=== PATIENT | male | born 1980 | race Caucasian/White ===

== ENCOUNTER → 2019-08-16 | Outpatient (CLI) | payer BC ==
--- NOTE | 2019-08-17 15:25 | KCIC ---
CHEST PA LATERAL History: Paratracheal mass. Comparison: 02/15/2019 AP view of the chest. Findings: Frontal and lateral views of the chest were obtained. The cardiomediastinal silhouette is normal. Pulmonary vasculature is normal. There is a right lower paratracheal mass which extends to the azygos level and right proximal main bronchus level. It measures 6.9 cm longitudinal by 4.2 cm transverse on the frontal view. The lungs are clear. No pleural effusion or pneumothorax is seen. There is no acute bone abnormality. IMPRESSION: Right lower paratracheal mass is new since the prior exam. Neoplastic etiology is of concern including lymphoma or lung carcinoma. This may represent representing lymphadenopathy related to underlying infectious etiology or other process. Further evaluation with CT of the chest with contrast is recommended. Discussed with the patient on 08/17/2019 at 3:18 PM. Discussed with the referring Dr. Joaquin Rodriguez on 08/17/2019 at 3:20 PM. Electronically signed by: Parish Robertson MD (08/17/2019 3:22 PM) [id number]
== END ==
LOC: KCIC 16:51
PROVIDERS: ATTEND Chiropractor
DX: R22.2 Localized swelling, mass and lump, trunk (principal)
CPT/HCPCS: 71046

== ENCOUNTER → 2019-08-23 | Outpatient (CLI) | payer BC ==
[~2019-08-23] MED LIST: IOHEXOL 300 MG/ML 100ML VIAL. IV ONE
--- NOTE | 2019-08-23 15:08 | RAD ---
EXAM: CT Chest with IV contrast INDICATION: Right paratracheal mass TECHNIQUE: Multi-detector row CT images were acquired from the thoracic inlet through the upper abdomen with the use of IV contrast. Sagittal and coronal images were acquired from the transaxial data. All CT scans performed at this facility utilize dose optimization techniques as appropriate to the exam, including the following: Automated exposure control and adjustment of the mA and/or KV according to patient size (this includes techniques or standardized protocols for targeted exams where dose is indication/reason for exam). IV CONTRAST: Administered COMPARISON: Chest x-ray 08/16/2019, chest x-ray 02/18/2019 FINDINGS: CARDIOVASCULAR: Unremarkable MEDIASTINUM & CRESCENCIO: The right paratracheal mass identified on recent chest x-ray corresponds with a lobulated mass suprahilar mediastinum measuring 5.5 x 3.4 x 6.8 cm (AP by transverse by craniocaudal. It appears to represent a loop conglomerate mass of enlarged lymph nodes. No necrosis. LUNGS: No pulmonary infiltrate, nodule, or other focal abnormality. PLEURAL SPACE: No pleural effusions or pneumothorax. OSSEOUS & SOFT TISSUE: Unremarkable ABDOMEN: The visualized portions of the upper abdomen are unremarkable. IMPRESSION: Right 5.5 x 3.4 x 6.8 cm paratracheal mass likely represents new mediastinal adenopathy. Favor a lymphoproliferative process. Recommend tissue sampling in further evaluation. Consider pulmonary medicine consultation for consideration of a transbronchial biopsy. Electronically signed by: Mayank Martinez MD (08/23/2019 3:05 PM) [id number]
== END | disposition home or self-care (01) ==
LOC: CT 09:15
PROVIDERS: ATTEND Chiropractor
DX: R91.8 Other nonspecific abnormal finding of lung field (principal)
CPT/HCPCS: 71260; Q9967

== ENCOUNTER → 2019-11-12 | Outpatient (CLI) | payer BC ==
--- NOTE | 2019-11-12 09:56 | RAD ---
Study: CT CHEST without CONTRAST History: Lung nodule Comparison: CT chest 08/23/2019 Technique: Helical CT of the chest without intravenous contrast. Coronal and sagittal 3D reformats were obtained. One or more of the following individualized dose reduction techniques were utilized for this examination: 1. Automated exposure control 2. Adjustment of the mA and/or kV according to patient size 3. Use of iterative reconstruction technique. Findings: Thyroid gland: Visualized portion of the thyroid gland is normal. Heart/great vessels: The heart is normal in size. No pericardial effusion. Thoracic aorta is normal in caliber. Mediastinum and mike: Right paratracheal mass or lymph node conglomeration measuring 5.3 x 3.6 x 6.8 cm (AP by transverse by CC) is unchanged. No new lymphadenopathy. Lungs and pleura: A 4 mm subpleural nodule in the left lower lobe is unchanged (image 196, series 8). No new pulmonary nodule. There is mild atelectasis in the lingula. No pleural effusion. Neck/Axilla/Body Wall: No axillary lymphadenopathy. Chest wall is normal. Upper Abdomen: Hepatic steatosis is noted. Bones: No acute osseous abnormality. IMPRESSION: 1. Unchanged large right paratracheal mass/lymph node conglomeration measuring 5.3 x 3.6 x 6.8 cm. No new lymphadenopathy. 2. Unchanged 4 mm subpleural pulmonary nodule in the left lower lobe. Electronically signed by: Ghislaine Winter MD (11/12/2019 9:53 AM) [id number]
== END | disposition home or self-care (01) ==
LOC: CT 08:06
PROVIDERS: ATTEND Internal Medicine Pulmonary Disease
DX: R91.1 Solitary pulmonary nodule (principal); K76.0 Fatty (change of) liver, not elsewhere classified
CPT/HCPCS: 71250

== ENCOUNTER → 2020-03-31 | Outpatient (CLI) | payer BC ==
--- NOTE | 2020-03-31 11:08 | RAD ---
CT of the chest without contrast 03/31/2020 INDICATION: Lung nodule. Mediastinal mass. COMPARISON STUDY: CT chest without contrast November 12, 2019. TECHNIQUE: Multidetector CT imaging of the chest was performed without contrast. FINDINGS: Size and morphology of right paratracheal mediastinal mass grossly unchanged. No new mediastinal adenopathy or mass is identified. Heart size remains normal. No pericardial effusion is seen. There is no pneumothorax, pleural effusion, or focal consolidative infiltrate. Subpleural nodule in the lateral left lower lobe is unchanged in size measuring approximately 5 mm in diameter on today's study (unchanged when measured in a comparable fashion). No other new nodules or masses are identified. Limited visualization of the upper abdomen demonstrates hepatic steatosis but is otherwise unremarkable. No acute osseous changes are identified in the interim. IMPRESSION: 1. Stable right paratracheal/mediastinal mass. 2. Stable left lower lobe pulmonary nodule. No acute change from prior exam is identified. CT DOSING PQRS STATEMENT: One or more of the following individualized dose reduction techniques were utilized for this examination: 1. Automated exposure control 2. Adjustment of the mA and/or kV according to patient size 3. Use of iterative reconstruction technique Electronically signed by: Craig Tijerina MD (03/31/2020 11:05 AM) [id number]
== END ==
LOC: CT 09:10
PROVIDERS: ATTEND Internal Medicine Pulmonary Disease
DX: R91.1 Solitary pulmonary nodule (principal)
CPT/HCPCS: 71250

== ENCOUNTER → 2021-04-27 | Outpatient (CLI) | payer BC ==
--- NOTE | 2021-04-27 16:04 | RAD ---
Noncontrast CT scan of the chest compared to similar exam dated March 312019 for adenopathy. TECHNIQUE: Contiguous axial CT images are obtained through the chest. Sagittal and coronal reformatio ns are evaluated. FINDINGS: 5 mm left lower lobe peripheral pulmonary nodule stable. The right paratracheal lobulated s oft tissue density with several tiny septations most likely represents confluent adenopathy, and gilbert in grossly unchanged in size and morphology from prior CT scan statement back to August [id number]. Thi s measures 5.1 x [address] series 2 image #21. No new adenopathy is seen. No new or suspicious colette g nodules are evident. No gross abnormalities of the visualized upper abdominal organs. No significan t soft tissue or osseous abnormalities. IMPRESSION: 1. Stable right paratracheal lobulated soft tissue mass that most likely reflects confluent adenopath y. No new adenopathy. 2. Stable benign left lower lobe pulmonary nodule. No new or suspicious lung nodules. PQRS Compliance Statement: One or more of the following individualized dose reduction techniques were utilized for this examinat ion: 1. Automated exposure control 2. Adjustment of the mA and/or kV according to patient size 3. Use of iterative reconstruction technique Electronically signed by: Mayco Pérez MD (04/27/2021 4:02 PM) [id number]
== END ==
LOC: CT 10:07
PROVIDERS: ATTEND Internal Medicine Pulmonary Disease
DX: R91.1 Solitary pulmonary nodule (principal); M79.89 Other specified soft tissue disorders; R59.9 Enlarged lymph nodes, unspecified
CPT/HCPCS: 71250